=== PATIENT | female | born 1950 | race Caucasian/White ===

== ENCOUNTER 2021-06-26 11:20 | Emergency (ER) | payer MEDICARE, OTHER, SELFPAY ==
[2021-06-26 11:25] VITALS: BP 181/84; PULSE 60; RESP 18; TEMP 36.4; O2SAT 99
--- NOTE | 2021-06-26 11:57 | ED.SKABFB ---
HPI - Skin/Abscess/Foreign Bdy General Chief complaint: Skin/Abscess/Foreign Body Stated complaint: BAR HIT HEAD Time Seen by Provider: 06/26/21 11:50 Source: patient Mode of arrival: Ambulatory Limitations: no limitations History of Present Illness HPI narrative: Patient is a 70-year-old female who presents with head injury. Which she states she was at a basketball game standing in front of bleachers that were folded put away when suddenly a bar fell on her head. She did not lose consciousness. She has not had any nausea or vomiting. She is not on any anti-platelet or anticoagulation medication. she did bleed a lot, however bleeding is now controlled. She denies any neck pain, numbness tingling or weakness. Related Data Home Medications Medication Instructions Recorded Confirmed No Known Home Medications 06/26/21 06/26/21 Allergies Allergy/AdvReac Type Severity Reaction Status Date / Time No Known Drug Allergies Allergy Verified 06/26/21 11:31 Review of Systems Review of Systems Narrative: GENERAL: Denies chills,fever HEENT: Denies throat pain RESPIRATORY: Denies dyspnea, cough, wheezing CARDIOVASCULAR: Denies chest pain, palpitations GASTROINTESTINAL: Denies nausea, vomiting MUSCULOSKELETAL: Denies extremity pain, injury SKIN: See HPI NEUROLOGIC: Denies weakness, dizziness, headache, numbness 8 point review of systems is negative except for those stated above and HPI Patient History Social History Smoking Status: Never smoker Smoking Status: Never smoker alcohol intake frequency: 0-2 drinks per day Substance Use Type: does not use Exam Initial Vital Signs Initial Vital Signs: Vital Signs Temperature 97.6 F 06/26/21 11:25 Pulse Rate 60 06/26/21 11:25 Respiratory Rate 18 06/26/21 11:25 Blood Pressure 181/84 H 06/26/21 11:25 Pulse Oximetry 99 06/26/21 11:25 GENERAL: Well-appearing, well-nourished and in no acute distress. HEAD: No depressions or crepitations small superficial abrasion noted at the superior part. EOMI. NECK: No vertebral tenderness no step-offs full range of motion flexion extension CARDIOVASCULAR: peripheral pulses in tact, cap refill <2 sec RESPIRATORY: No respiratory distress, speaks in full sentences without difficulty EXTREMITIES: Normal range of motion, no clubbing or edema. Neurovascularly intact NEUROLOGICAL: Cranial nerves II through XII grossly intact. Normal gait and speech. SKIN: Top of scalp skin abrasion it was actively bleeding but very good skin approximation is fairly superficial Course Vital Signs Vital signs: Vital Signs - 8 hr 06/26/21 11:25 Temperature 97.6 F Pulse Rate 60 Respiratory Rate 18 Blood Pressure 181/84 H Pulse Oximetry 99 MDM - Skin/Abscess/Foreign Bdy MDM Narrative Medical decision making narrative: The patient has a very small superficial abrasion on the top of her head. No depressions or crepitations no risk factors for intracranial hemorrhage or skull fracture. Bleeding is easily controlled skin has good close approximation no need for repair. Discharge Plan Departure Patient Disposition: Home Clinical Impression: Abrasion of scalp, Closed head injury Instructions: Closed Head Injury Activity Restrictions/Additional Instructions: *You have been diagnosed with close head injury and scalp abrasion *What to do: You may experience some bleeding however just apply pressure it seems to stop easily. May try ice if needed. You may experience that your sensitive to light or scrapes that is the case and limit screen time. *Continue to take medications as directed Tylenol 650 mg every 4 6 hours if needed for plor-vi-iaqgalue pain *Follow up with your primary care provider in 2-3 days *Return to ER if you should have worsening headache, worsening confusion, persistent vomiting or any new, worsening or concerning symptoms Prescriptions: No Action No Known Home Medications 0RF
== END 2021-06-26 12:35 | disposition home or self-care (01) ==
PROVIDERS: Emergency Provider Emergency Medicine
DX: S00.01XA Abrasion of scalp, initial encounter (principal); S09.90XA Unspecified injury of head, initial encounter; W20.8XXA Other cause of strike by thrown, projected or falling object, initial encounter; Y92.89 Other specified places as the place of occurrence of the external cause
CPT/HCPCS: 99281

== ENCOUNTER → 2024-12-02 09:00 | Outpatient (CLI) | payer MEDICARE, OTHER, SELFPAY ==
--- NOTE | 2024-12-02 09:03 | DI.CT.S_ITS ---
PROCEDURE: CT WRIST LEFT WITHOUT CON INDICATIONS: Closed nondisplaced fracture TECHNIQUE: Noncontrast 1 mm axial sections acquired through the carpal bones, with coronal and sagittal reformats. COMPARISON: Outside Film, CR, XR WRIST 3+ VIEWS LEFT, 11/08/2024, 10:17. FINDINGS: Image quality: Excellent. Bones: Wrist alignment is anatomic. Nondisplaced transverse fracture through distal 1/3 of the scaphoid waist is seen. Up to 1.1 mm diastasis is seen at fracture site with mildly corticated margin concerning for delayed union or nonunion. No CT evidence of avascular necrosis. Widened scapholunate interval is noted. Osteoarthritic changes also seen throughout wrist joints more notably involving 1st CMC joint and triscaphe joint. No acute fracture or dislocation. Soft tissues: There is no significant joint effusion or calcified intra-articular loose bodies. No full-thickness extensor or flexor tendon rupture. No soft tissue mass or drainable fluid collection. IMPRESSION: 1. Subacute appearing nondisplaced transverse fracture through distal scaphoid waist with up to 1.1 mm diastasis at fracture site and mildly corticated margin concerning for delayed union or nonunion. 2. [id number] wrist joint osteoarthritis. No other fracture or dislocation. No CT evidence of avascular necrosis. 3. Widened scapholunate interval concerning for ruptured scapholunate ligament. No full-thickness wrist tendon rupture. No abnormal soft tissue calcifications or calcified intra-articular loose bodies. Dictated by: José Manuel Armstrong M.D. on 12/03/2024 at 2:37 Approved by: José Manuel Armstrong M.D. on 12/03/2024 at 2:40
== END ==
LOC: CT 09:03
PROVIDERS: Referring Provider Physician Assistant; Visit Provider Physician Assistant
DX: S62.025A Nondisplaced fracture of middle third of navicular [scaphoid] bone of left wrist, initial encounter for closed fracture (principal); M19.032 Primary osteoarthritis, left wrist; X58.XXXA Exposure to other specified factors, initial encounter
CPT/HCPCS: 73200